=== PATIENT | male | born 1980 | race Caucasian/White ===

== ENCOUNTER 2017-03-16 06:43 | Emergency (ER) | payer OTHER ==
[~2017-03-16] VITALS: Ht 172.7 cm; Wt 102.1 kg
--- NOTE | 2017-03-16 06:46 | PHYS DOC ---
Adult General Chief Complaint Chief Complaint: FLANK PAIN HPI HPI Patient is a 36 year old male who presents with less I flank pain. He states this started about 4 AM with pain at the tip of his penis and then around 5 AM it went to his left flank and radiated down into his left testicle. He states this is same pain he's had before when he's had kidney stones. He also felt nauseated and vomited once. He states this happens when he has severe pain like this. He states prior to 4 AM he felt completely fine. Review of Systems Review of Systems Constitutional: Denies fever or chills [] Eyes: Denies change in visual acuity, redness, or eye pain [] HENT: Denies nasal congestion or sore throat [] Respiratory: Denies cough or shortness of breath [] Cardiovascular: No additional information not addressed in HPI [] GI: Denies, bloody stools or diarrhea, positive for abdominal pain, nausea, vomiting [] : Denies dysuria or hematuria [] Musculoskeletal: Denies back pain or joint pain [] Integument: Denies rash or skin lesions [] Neurologic: Denies headache, focal weakness or sensory changes [] Endocrine: Denies polyuria or polydipsia [] Current Medications Current Medications Current Medications Medications (Trade) Dose Ordered Sig/Jori Start Time Stop Time Status Last Admin Dose Admin Ketorolac Tromethamine (Toradol) 30 mg 1X ONCE 03/16/17 08:45 03/16/17 08:49 DC Morphine Sulfate 4 mg PRN Q15MIN PRN 03/16/17 07:00 03/17/17 06:59 03/16/17 06:56 4 MG Ondansetron HCl (Zofran) 4 mg 1X ONCE 03/16/17 07:15 03/16/17 07:16 DC 03/16/17 06:57 4 MG Sodium Chloride 1,000 ml @ 1,000 mls/hr Q1H 03/16/17 07:00 03/16/17 07:59 DC 03/16/17 06:57 1,000 MLS/HR Tamsulosin HCl (Flomax) 0.4 mg 1X ONCE 03/16/17 08:45 03/16/17 08:49 DC Allergies Allergies Allergies Coded Allergies Type Severity Reaction Last Updated Verified No Known Drug Allergies 03/16/17 No Physical Exam Physical Exam Constitutional: Well developed, well nourished, no acute distress, non-toxic appearance. [] HENT: Normocephalic, atraumatic, bilateral external ears normal, oropharynx moist, no oral exudates, nose normal. [] Eyes: PERRLA, EOMI, conjunctiva normal, no discharge. [] Neck: Normal range of motion, no tenderness, supple, no stridor. [] Cardiovascular:Heart rate regular rhythm, no murmur [] Lungs & Thorax: Bilateral breath sounds clear to auscultation [] Abdomen: Bowel sounds normal, soft, mild tenderness palpation of the left flank , no masses, no pulsatile masses. [] Skin: Warm, dry, no erythema, no rash. [] Back: No tenderness, no CVA tenderness. [] Extremities: No tenderness, no cyanosis, no clubbing, ROM intact, no edema. [] Neurologic: Alert and oriented X 3, normal motor function, normal sensory function, no focal deficits noted. [] Psychologic: Affect normal, judgement normal, mood normal. [] Current Patient Data Vital Signs Vital Signs Date Time Temp Pulse Resp B/P (MAP) Pulse Ox O2 Delivery O2 Flow Rate FiO2 03/16/17 07:14 16 98 Room Air 03/16/17 06:48 97.9 58 168/80 (109) 97.9 Lab Values Laboratory Tests Test 03/16/17 06:45 03/16/17 06:50 Urine Collection Type Unknown Urine Color Yellow Urine Clarity Clear Urine pH 5.5 Urine Specific [place] >=1.030 Urine Protein Negative mg/dL (NEG-TRACE) Urine Glucose (UA) Negative mg/dL (NEG) Urine Ketones (Stick) Negative mg/dL (NEG) Urine Blood Large (NEG) Urine Nitrite Negative (NEG) Urine Bilirubin Negative (NEG) Urine Urobilinogen Dipstick 0.2 mg/dL (0.2 mg/dL) Urine Leukocyte Esterase Negative (NEG) Urine RBC >40 /HPF (0-2) Urine WBC 0 /HPF (0-4) Urine Squamous Epithelial Cells Few /LPF Urine Bacteria 0 /HPF (0-FEW) Urine Mucus Marked /LPF White Blood Count 9.0 x10^3/uL (4.0-11.0) Red Blood Count 5.20 x10^6/uL (4.30-5.70) Hemoglobin 15.7 g/dL (13.0-17.5) Hematocrit 44.9 % (39.0-53.0) Mean Corpuscular Volume 86 fL (79-100) Mean Corpuscular Hemoglobin 30 pg (25-35) Mean Corpuscular Hemoglobin Concent 35 g/dL (31-37) Red Cell Distribution Width 12.8 % (11.5-14.5) Platelet Count 279 x10^3/uL (140-400) Neutrophils (%) (Auto) 61 % (31-73) Lymphocytes (%) (Auto) 26 % (24-48) Monocytes (%) (Auto) 11 % (0-9) H Eosinophils (%) (Auto) 1 % (0-3) Basophils (%) (Auto) 1 % (0-3) Neutrophils # (Auto) 5.5 x10^3uL (1.8-7.7) Lymphocytes # (Auto) 2.4 x10^3/uL (1.0-4.8) Monocytes # (Auto) 0.9 x10^3/uL (0.0-1.1) Eosinophils # (Auto) 0.1 x10^3/uL (0.0-0.7) Basophils # (Auto) 0.1 x10^3/uL (0.0-0.2) Prothrombin Time 12.5 SEC (11.7-14.0) Prothrombin Time INR 1.0 (0.8-1.1) PTT 27 SEC (24-38) Sodium Level 137 mmol/L (136-145) Potassium Level 3.7 mmol/L (3.5-5.1) Chloride Level 100 mmol/L (98-107) Carbon Dioxide Level 24 mmol/L (21-32) Anion Gap 13 (6-14) Blood Urea Nitrogen 19 mg/dL (8-26) Creatinine 1.1 mg/dL (0.7-1.3) Estimated GFR (Cockcroft-Gault) 76.6 BUN/Creatinine Ratio 17 (6-20) Glucose Level 151 mg/dL (70-99) H Calcium Level 9.1 mg/dL (8.5-10.1) Total Bilirubin 0.4 mg/dL (0.2-1.0) Aspartate Amino Transferase (AST) 28 U/L (15-37) Alanine Aminotransferase (ALT) 71 U/L (16-63) H Alkaline Phosphatase 87 U/L (46-116) Creatine Kinase 128 U/L (39-308) Creatine Kinase MB (Mass) < 0.5 ng/mL (0.0-3.6) Creatine Kinase MB Relative Index % (0-4) Total Protein 7.7 g/dL (6.4-8.2) Albumin 4.1 g/dL (3.4-5.0) Albumin/Globulin Ratio 1.1 (1.0-1.7) Lipase 144 U/L (73-393) Laboratory Tests 03/16/17 06:50 Laboratory Tests 03/16/17 06:50 EKG EKG [] Radiology/Procedures Radiology/Procedures [facility] [address] [place] [address] IMAGING REPORT Signed PATIENT: MONIQUE DEMPSEY ACCOUNT: [id number] : 1980 LOCATION: ER AGE: 36 SEX: M EXAM STATUS: REG ER ORD. PHYSICIAN: LOREN HE MD REASON: stone protocol PROCEDURE: CT ABDOMEN PELVIS WO CONTRAST CT study of the abdomen and pelvis without contrast Indications: Left flank pain radiating to the groin this morning. Possible urinary tract stone. History of urinary tract stone in 2013. Comparison: February 21, 2014. Technique: Noncontrast helical CT scanning of the abdomen and pelvis was performed. Without contrast, the sensitivity to detect organ pathology and GI tract pathology is decreased. PQRS Compliance Statement: One or more of the following individualized dose reduction techniques were utilized for this examination: 1. Automated exposure control 2. Adjustment of the mA and/or kV according to patient size 3. Use of iterative reconstruction technique Findings: There is diffuse fatty infiltration of the liver. The spleen and pancreas are homogeneous in appearance on this noncontrast study. The gallbladder is surgically absent. No extra hepatic biliary ductal dilatation is seen. No adrenal mass is evident. No hydronephrosis or hydroureter is seen on the right side. There is mild left-sided hydronephrosis and hydroureter down to the level of the UVJ. There is a small 2.5 mm stone within the distal left ureter at the level of the UVJ. The urinary bladder wall is smooth. No focal aneurysmal dilatation of the abdominal aorta is seen. No enlarged abdominal or pelvic lymphadenopathy is seen. No obstructive bowel pattern is seen. No free air or free fluid or mesenteric inflammatory change is seen. The appendix is normal. Dependent atelectasis of both lung bases is seen. There is a calcified granuloma of the posterior left costophrenic angle. No osteolytic process is seen. IMPRESSION: Mild left-sided hydronephrosis and hydroureter due to an obstructing 2.5 mm stone within the intramural portion of the distal left ureter at the UVJ. Fatty infiltration of the liver. DICTATED and SIGNED BY: LISA GATICA MD DATE: 03/16/17821 CC: LOREN HE MD; BOO MCNALLY MD ~ Impressions: Left side kidney stone Course & Med Decision Making Course & Med Decision Making Pertinent Labs and Imaging studies reviewed. (See chart for details) UA shows hematuria. Rest of his labs are nonacute. CT stone protocol shows a 2.5 mm left-sided stone. Patient received IV fluids, IV morphine and his pain is under control at this time. He received Toradol IV and Flomax and is being discharged home with urology follow-up. Return precautions given for fevers, severe pain, uncontrolled nausea. Patient and is agreeable to the plan and being discharged in stable condition this time. Dragon Disclaimer Dragon Disclaimer This electronic medical record was generated, in whole or in part, using a voice recognition dictation system. Departure Departure Impression: Primary Impression: Kidney stone Disposition: 01 HOME, SELF-CARE Condition: STABLE Referrals: BOO MCNALLY MD (PCP) Patient Instructions: Kidney Stones Additional Instructions: You have a 2.5 mm kidney stone on the left side. Your being discharged home and will need to follow-up with urology. Please call Dr. Ho's office and schedule appointment. Your being discharged with pain meds, Flomax, and antinausea meds. You will need to strain your urine to try to catch the stone. These don't drive your car while taking the pain meds as they are narcotic pain medicine and can impair judgment and make you sleepy. Return ER for severe pain , uncontrolled nausea vomiting, fevers or other concerns. Scripts Ondansetron (ZOFRAN ODT) 4 Mg Tab.rapdis 1 TAB SL Q8HRS Y for NAUSEA, #10 TAB Prov: LOREN HE MD 03/16/17 Tamsulosin Hcl (FLOMAX) 0.4 Mg Cap.er.24h 1 CAP PO DAILY, #30 CAP Prov: LOREN HE MD 03/16/17 Hydrocodone/Apap 5-325 (NORCO 5-325 TABLET) 1 Each Tablet 1-2 TAB PO Q6HRS Y for PAIN, #20 TAB Prov: LOREN HE MD 03/16/17 LOREN HE MD Mar 16, 2017 06:46
[2017-03-16] MEDS: MORPHINE SULFATE 4 MG/ML DISP.SYRIN. IV/SQ PRN ×2 (06:56→09:08)
[2017-03-16] MEDS ORDERED: IV NORMAL SALINE 1000ML BAG 1,000 ML IV SCH (07:00)
[2017-03-16 07:11] LABS: BILIRUBIN,URINE NEGATIVE (NEG); GLUCOSE,URINE NEGATIVE (NEG); NITRITE,URINE NEGATIVE (NEG); PH,URINE 5.5; PROTEIN,URINE NEGATIVE (NEG-TRACE); UROBILINOGEN,URINE 0.2 mg/dL (0.2 mg/dL)
[2017-03-16 07:11] LABS: BASO # 0.1 x10^3/uL (0.0-0.2); BASO % 1 % (0-3); CALCIUM 9.1 mg/dL (8.5-10.1); CREATININE 1.1 mg/dL (0.7-1.3); EOS % 1 % (0-3); GFR 76.6; HEMATOCRIT 44.9 % (39.0-53.0); HEMOGLOBIN 15.7 g/dL (13.0-17.5); LYMPH # 2.4 x10^3/uL (1.0-4.8); LYMPH % 26 % (24-48); MEAN CORPUSCULAR HEMOGLOBIN 30 pg (25-35); MEAN CORPUSCULAR HGB CONC 35 g/dL (31-37); MEAN CORPUSCULAR VOLUME 86 fL (79-100); MONO % 11 % (0-9); NEUT % 61 % (31-73); PLATELET COUNT 279 x10^3/uL (140-400); POTASSIUM 3.7 mmol/L (3.5-5.1); RED CELL DISTRIBUTION WIDTH 12.8 % (11.5-14.5)
[2017-03-16] MEDS ORDERED: ONDANSETRON PF 4 MG/2 ML VIAL. IV ONE (07:15)
[2017-03-16 07:19] LABS: ALBUMIN 4.1 g/dL (3.4-5.0); ALBUMIN/GLOBULIN RATIO 1.1 (1.0-1.7); TOTAL BILIRUBIN 0.4 mg/dL (0.2-1.0); TOTAL PROTEIN 7.7 g/dL (6.4-8.2)
[2017-03-16 07:26] LABS: CREATINE KINASE 128 U/L (39-308)
[2017-03-16 07:27] LABS: CKMB MASS < 0.5 ng/mL (0.0-3.6)
[2017-03-16 07:29] LABS: BACTERIA,URINE 0 /HPF (0-FEW); RBC,URINE >40 /HPF (0-2); SQUAMOUS EPITHELIAL CELL,UR FEW /LPF; WBC,URINE 0 /HPF (0-4)
[2017-03-16 07:31] LABS: PROTHROMBIN TIME PATIENT 12.5 SEC (11.7-14.0)
--- NOTE | 2017-03-16 08:36 | RAD ---
CT study of the abdomen and pelvis without contrast Indications: Left flank pain radiating to the groin this morning. Possible urinary tract stone. History of urinary tract stone in 2014. Comparison: February 21, 2014. Technique: Noncontrast helical CT scanning of the abdomen and pelvis was performed. Without contrast, the sensitivity to detect organ pathology and GI tract pathology is decreased. PQRS Compliance Statement: One or more of the following individualized dose reduction techniques were utilized for this examination: 1. Automated exposure control 2. Adjustment of the mA and/or kV according to patient size 3. Use of iterative reconstruction technique Findings: There is diffuse fatty infiltration of the liver. The spleen and pancreas are homogeneous in appearance on this noncontrast study. The gallbladder is surgically absent. No extra hepatic biliary ductal dilatation is seen. No adrenal mass is evident. No hydronephrosis or hydroureter is seen on the right side. There is mild left-sided hydronephrosis and hydroureter down to the level of the UVJ. There is a small 2.5 mm stone within the distal left ureter at the level of the UVJ. The urinary bladder wall is smooth. No focal aneurysmal dilatation of the abdominal aorta is seen. No enlarged abdominal or pelvic lymphadenopathy is seen. No obstructive bowel pattern is seen. No free air or free fluid or mesenteric inflammatory change is seen. The appendix is normal. Dependent atelectasis of both lung bases is seen. There is a calcified granuloma of the posterior left costophrenic angle. No osteolytic process is seen. IMPRESSION: Mild left-sided hydronephrosis and hydroureter due to an obstructing 2.5 mm stone within the intramural portion of the distal left ureter at the UVJ. Fatty infiltration of the liver.
[2017-03-16] MEDS ORDERED: TAMSULOSIN 0.4 MG CAP.ER.24H. PO ONE (08:45)
[2017-03-16] MEDS ORDERED: KETOROLAC TROMETHAMINE 30 MG/ML INJ. IV ONE (08:45)
[2017-03-16] MEDS ORDERED: ONDA4TAB10 SL (08:56)
[2017-03-16] MEDS ORDERED: HYDR-971 PO (08:56)
[2017-03-16] MEDS ORDERED: TAMS0.4C97 PO (08:56)
[2017-03-16 09:00] VITALS: BP 122/63
[2017-03-16] MEDS ORDERED: PRED50TA PO (14:23)
== END 2017-03-16 09:30 | disposition home or self-care (01) ==
LOC: ER 06:43
DX: N20.0 Calculus of kidney (principal)
CPT/HCPCS: 36415; 74176; 80053; 81001; 82553; 83690; 85027; 85610; 85730; 96361; 96374; 96375; 96376; 99285; J1885; J2270; J2405; J7030

== ENCOUNTER 2017-03-16 13:11 | Emergency (ER) | payer OTHER ==
[~2017-03-16 13:11] MED LIST: HYDR-971 PO; ONDA4TAB10 SL; TAMS0.4C97 PO
--- NOTE | 2017-03-16 13:28 | PHYS DOC ---
Past Medical History Past Medical History: Other Additional Past Medical Histor: kidney stone Past Surgical History: No Surgical History Alcohol Use: None Drug Use: None Adult General Chief Complaint Chief Complaint: ALLERGIC REACTION HPI HPI Patient is a 36 year old male that presents to the emergency department allergic reaction. Patient was evaluated earlier in the day for a renal stone. He stills at 7:00 this morning he was given morphine. He states prior to discharge that at 9:30 AM he was given Toradol IV and Flomax. He states within an hour of arriving home he developed hives on his alert 70s that then began to progress upward to include his face. He denies shortness of breath, denies cough. He does complain of generalized itching Review of Systems Review of Systems Constitutional: Denies fever or chills [] Eyes: Denies change in visual acuity, redness, or eye pain [] HENT: Denies nasal congestion or sore throat [] Respiratory: Denies cough or shortness of breath [] Cardiovascular: No additional information not addressed in HPI [] GI: Denies abdominal pain, nausea, vomiting, bloody stools or diarrhea [] : Denies dysuria or hematuria [] Musculoskeletal: Denies back pain or joint pain [] Integument:hives and itching Neurologic: Denies headache, focal weakness or sensory changes [] Endocrine: Denies polyuria or polydipsia [] Current Medications Current Medications Current Medications Medications (Trade) Dose Ordered Sig/Jori Start Time Stop Time Status Last Admin Dose Admin Diphenhydramine HCl (Benadryl) 50 mg 1X ONCE 03/16/17 13:30 03/16/17 13:34 DC 03/16/17 13:45 50 MG Famotidine (Pepcid) 20 mg 1X ONCE 03/16/17 13:30 03/16/17 13:34 DC 03/16/17 13:45 20 MG Methylprednisolone Sodium Succinate (SOLU-Medrol 125MG VIAL) 125 mg 1X ONCE 03/16/17 13:30 03/16/17 13:34 DC 03/16/17 13:45 125 MG Allergies Allergies Allergies Coded Allergies Type Severity Reaction Last Updated Verified No Known Drug Allergies 03/16/17 No Physical Exam Physical Exam Constitutional: Well developed, well nourished, no acute distress, non-toxic appearance. [] HENT: Normocephalic, atraumatic, bilateral external ears normal, oropharynx moist, no oral exudates, nose normal. [] Eyes: PERRLA, EOMI, conjunctiva normal, no discharge. [] Neck: Normal range of motion, no tenderness, supple, no stridor. [] Cardiovascular:Heart rate regular rhythm, no murmur [] Lungs & Thorax: Bilateral breath sounds clear to auscultation [] Abdomen: Bowel sounds normal, soft, no tenderness, no masses, no pulsatile masses. [] Skin: Patient with diffuse hives, including face. He has no facial swelling. Back: No tenderness, no CVA tenderness. [] Extremities: No tenderness, no cyanosis, no clubbing, ROM intact, no edema. [] Neurologic: Alert and oriented X 3, normal motor function, normal sensory function, no focal deficits noted. [] Psychologic: Affect normal, judgement normal, mood normal. [] Current Patient Data Vital Signs Vital Signs Date Time Temp Pulse Resp B/P (MAP) Pulse Ox O2 Delivery O2 Flow Rate FiO2 03/16/17 13:49 82 20 114/67 (83) 95 Room Air 03/16/17 13:27 97.8 97.8 EKG EKG [] Radiology/Procedures Radiology/Procedures [] Course & Med Decision Making Course & Med Decision Making 1515: Reevaluation. Patient's hives are diminishing but not completely gone. There is less erythema P hives. The patient has no complaints of itching. He has no complaints of shortness of breath, no facial swelling. Breath Sounds are clear to auscultate throughout. I advised the patient and his on outpatient management. He will be prescribed prednisone for 2 days, Benadryl [id number] 2 tablets every 6 hours for the next 24 hours and over-the- counter Pepcid as labeled. Patient is verbalized understanding and agreement with the plan. Advised to return to the emergency department for worsening of current condition new symptoms or concerns. I did advise them to discontinue use of pleural-based products or Flomax. Pertinent Labs and Imaging studies reviewed. (See chart for details) [] Dragon Disclaimer Dragon Disclaimer This electronic medical record was generated, in whole or in part, using a voice recognition dictation system. Departure Departure Impression: Primary Impression: Acute allergic reaction Disposition: HOME, SELF-CARE Condition: STABLE Referrals: BOO MCNALLY MD (PCP) Patient Instructions: Allergies, Generic Additional Instructions: [id number] Benadryl, 2 tablets every 6 hours for 24 hours. Over-the- counter Pepcid as labeled daily. Return to the emergency Department for new symptoms or concerns or worsening of current condition. Scripts Prednisone (PREDNISONE) 50 Mg Tablet 1 TAB PO DAILY, #2 TAB Start 03-16-2017 Prov: KRISTYN GO APRN 03/16/17 KRISTYN GO APRN Mar 16, 2017 13:28
[2017-03-16] MEDS ORDERED: diphenhydrAMINE 50 MG/ML VIAL IVP ONE (13:30)
[2017-03-16] MEDS ORDERED: FAMOTIDINE 20 MG TABLET. PO ONE (13:30)
[2017-03-16] MEDS ORDERED: methylPREDNISolone SOD SUCC PF 125 MG/2 ML VIAL. IV ONE (13:30)
[2017-03-16] MEDS ORDERED: PRED50TA PO (14:23)
[2017-03-16 14:29] VITALS: BP 106/67
== END 2017-03-16 14:36 | disposition home or self-care (01) ==
LOC: ER 13:11
DX: T78.40XA Allergy, unspecified, initial encounter (principal); Z87.442 Personal history of urinary calculi; X58.XXXA Exposure to other specified factors, initial encounter
CPT/HCPCS: 96374; 96375; 99284; J1200; J2930